=== PATIENT | male | born 1955 | race Caucasian/White ===

== ENCOUNTER 2017-01-26 21:00 | Inpatient (IN) | payer OTHER ==
--- NOTE | ~2017-01-26 | PN ---
Unit #: [id number] #: [id number] Patient: JOHN PENNINGTON [id number] [facility] [address] [place] [address] [id number] MR#: [id number] NAME: JOHN PENNINGTON ROOM: P178 Age: 61 Sex: M Admission Date: 01/27/2017 : 1955 Attending Physician: Bert Cazares M.D. Admitting Physician: Bert Cazares M.D. Primary Care Physician: Primary Care Physician Brielle RANGEL PROGRESS NOTES DATE 01/29/2017 DISCUSSION The patient's participation within the therapeutic milieu significantly limited secondary to his lack of mobility but I will encourage staff to take the patient to group in his wheelchair as his detox symptoms resolved. Otherwise, the patient offers no new complaints today. The patient continues to appear to be a good candidate for possible referral for physical rehabilitation. Dictated by... Bert Cazares M.D. CB/cody TD: 01/29/2017 14:10 JOB #: [id number] [facility] PROGRESS NOTES Page 1 of 1 X Bert Cazares MD PROGRESS NOTE
--- NOTE | ~2017-01-26 | DS ---
Unit #: [id number] #: [id number] Patient: JOHN PENNINGTON [id number] [place] [address] [id number] I MR#: [id number] NAME: JOHN PENNINGTON ROOM: P178 Age: 61 Sex: M Admission Date: 01/27/2017 : 1955 Discharge Date: 02/02/2017 Attending Physician: Bert Cazares M.D. Primary Care Physician: Primary Care Physician No DISCHARGE SUMMARY REASON FOR ADMISSION The patient is a 61-year-old white male, admitted for alcohol detox. HOSPITAL COURSE The patient was admitted to the [facility], placed on routine detoxification protocol for alcohol. He remained in bed with little participation within the therapeutic milieu. He claimed to be unable to walk and remained in bed throughout much of stay in the hospital. His detox was complete by 02/02/2017, and discharge was ordered. This physician at one point entertained the idea of possible referral to a physical rehabilitation facility; however, the patient did not cooperate with this such planning, and stated that he wished to go home at the time of discharge. FINAL DIAGNOSES Alcohol use disorder. DISPOSITION ON DISCHARGE The patient is discharged on the following medications Vibramycin 100 mg b.i.d. for upper respiratory infection. No dietary or physical restrictions were placed on the patient at the time of discharge. FOLLOWUP Followup will take place through the auspices of community mental health resources. PROGNOSIS Considered less than optimal. Dictated by... Bert Cazares M.D. CB/fredi TD: 02/03/2017 11:15 JOB #: [id number] Unit #: [id number] #: [id number] Patient: JOHN PENNINGTON DISCHARGE SUMMARY Page 1 of 1 X Bert Cazares MD X DISCHARGE SUMMARY
--- NOTE | ~2017-01-26 | PN ---
Unit #: [id number] #: [id number] Patient: JOHN PENNINGTON [id number] [facility] [address] [place] [address] [id number] MR#: [id number] NAME: JOHN PENNINGTON ROOM: P178 Age: 61 Sex: M Admission Date: 01/27/2017 : 1955 Attending Physician: Bert Cazares M.D. Admitting Physician: Bert Cazares M.D. Primary Care Physician: Primary Care Physician Brielle RANGEL PROGRESS NOTES DATE 02/01/2017 DISCUSSION The patient remains abed with little participation whatsoever within the therapeutic milieu. I have informed today to expect a.m. discharge. Dictated by... Bert Cazares M.D. CB/chapis TD: 02/02/2017 04:13 JOB #: [id number] [facility] PROGRESS NOTES Page 1 of 1 X Bert Cazares MD X PROGRESS NOTE
--- NOTE | ~2017-01-26 | PN ---
Unit #: [id number] #: [id number] Patient: JOHN PENNINGTON [id number] [facility] [address] [place] [address] [id number] MR#: [id number] NAME: JOHN PENNINGTON ROOM: P178 Age: 61 Sex: M Admission Date: 01/27/2017 : 1955 Attending Physician: Bert Cazares M.D. Admitting Physician: Bert Cazares M.D. Primary Care Physician: Primary Care Physician Brielle RANGEL PROGRESS NOTES DATE 01/31/2017 DISCUSSION The patient remains abed with little participation within the therapeutic milieu. We continue current treatment, and we will discontinue the patient's detoxification protocol at the conclusion of 5 days of detoxification tomorrow. I am uncertain as to whether the patient qualify for physical rehabilitation and return home while not an ideal disposition may be our only choice. Dictated by... Bert Cazares M.D. CB/bzg TD: 01/31/2017 14:37 JOB #: [id number] [facility] PROGRESS NOTES Page 1 of 1 X Bert Cazares MD X PROGRESS NOTE
--- NOTE | ~2017-01-26 | PN ---
Unit #: [id number] #: [id number] Patient: JOHN PENNINGTON [id number] [facility] [address] [place] [address] [id number] MR#: [id number] NAME: JOHN PENNINGTON ROOM: P178 Age: 61 Sex: M Admission Date: 01/27/2017 : 1955 Attending Physician: Bert Cazares M.D. Admitting Physician: Bert Cazares M.D. Primary Care Physician: Primary Care Physician Brielle SANABRIA NOTES DATE 01/28/2017 DISCUSSION The patient remains abed with little participation within the therapeutic milieu. He claims that he is unable to walk. I will ask the patient's older adult social work specialist to see him regarding possible referral for physical rehabilitation and at this point, he continues on his prescribed psychotropic medication regimen. Dictated by... Bert Cazares M.D. CB/cody TD: 01/28/2017 21:22 JOB #: [id number] [facility] PROGRESS NOTES Page 1 of 1 X Bert Cazares MD PROGRESS NOTE
--- NOTE | ~2017-01-26 | PA ---
Unit #: [id number] #: [id number] Patient: JOHN PENNINGTON [id number] [place] [address] [id number] I MR#: [id number] NAME: JOHN PENNINGTON ROOM: P178 Age: 61 Sex: M Admission Date: 01/27/2017 : 1955 Date of Assessment: 01/27/2017 Attending Physician: Bert Cazares M.D. Admitting Physician: Bert Cazares M.D. Primary Care Physician: Primary Care Physician No PSYCHIATRIC ASSESSMENT IDENTIFYING INFORMATION The patient is a 61-year-old white male admitted to the [address] [place] [address] with increasing alcohol use and suicidal ideation. INFORMANT(S) Patient. RELIABILITY Good. CHIEF COMPLAINT None given. HISTORY OF PRESENT ILLNESS The patient is a 61-year-old white male well-known to this physician from 2 previous admissions to this facility. The patient is admitted after he had presented to this facility voicing positive suicidal ideation with plan to electrocute himself in a bathtub. The patient reports that his most prominent stressor at this point is estrangement from his family. He also reports that he is living in intolerable circumstances with his cz-ureorff-ba-law. He states that it is difficult to sleep in this chaotic relationship. He reports that he has been abusing alcohol up to 24 beers on a daily basis. The patient is unable to work secondary to chronic back pain and is now wheelchair bound. For a more complete history of present illness, please refer to previous dictated notes. PAST PSYCHIATRIC HISTORY No changes. FAMILY HISTORY Reviewed, no changes. SOCIAL HISTORY Reviewed, no changes a part from the fact that the patient is now living with his ynojdox-qm-cmw. MEDICAL HISTORY No changes. MEDICATION HISTORY None. ALLERGIES Unit #: [id number] #: [id number] Patient: JOHN PENNINGTON None. MENTAL STATUS EXAM At this time, reveals the patient to be a disheveled thin white male appearing stated age. He is in no apparent physical distress at the time of examination. He is awake, alert, oriented in all spheres. His mood is dysphoric. His affect constricted. Speech is generally relevant and coherent. There are no gross deficits in memory or cognition noted. Intelligence is judged to be in the average range based on fund of knowledge. The patient is cooperative throughout the interview. He is currently endorsing positive suicidal ideation. He denies homicidal ideation. He denies any psychotic symptoms. His judgement and insight appear to be intact. ASSETS AND LIABILITIES Patient's assets, motivation for change. Liabilities, lack of resources. ADMITTING DIAGNOSES 1. Dysthymic disorder. 2. Alcohol use disorder. PSYCHIATRIC PLAN/TREATMENT GOALS The patient remains hospitalized for safety and stabilization. Routine detoxification protocol for alcohol has been initiated. The patient will participate in appropriate baptiste and milieu activities. ESTIMATED LENGTH OF STAY Five to seven days. Dictated by... Bert Cazares M.D. HEIDY/cody TD: 01/27/2017 16:39 JOB #: [id number] PSYCHIATRIC ASSESSMENT Page 1 of 1 X Bert Cazares MD X PSYCHIATRIC ASSESSMENT
--- NOTE | ~2017-01-26 | HP ---
Unit #: [id number] #: [id number] Patient: JOHN PENNINGTON [id number] [place] [address] [id number] MR#: [id number] NAME: JOHN PENNINGTON ROOM: P178 Age: 61 Sex: M Admission Date: 01/27/2017 : 1955 Attending Physician: Bert Cazares M.D. Admitting Physician: Bert Cazares M.D. Primary Care Physician: Primary Care Physician No HISTORY AND PHYSICAL HISTORY OF PRESENT ILLNESS John is a 61 year old admitted to [facility] because of his continued abuse of alcohol. PAST MEDICAL HISTORY 1. Long history of alcohol abuse. a. Cirrhosis. 2. COPD. 3. Degenerative disc disease. PAST SURGICAL HISTORY Left hand. ALLERGIES No known drug allergies. SOCIAL HISTORY Smokes at least 1 1/2 packs per day. Drinks 12 to 24 beers on a daily basis. Denies illicit drug use. FAMILY HISTORY Medically noncontributory. REVIEW OF SYSTEMS CONSTITUTIONAL: No fever or chills. HEENT: Denies any sore throat, ear pain or runny nose. CARDIOVASCULAR: Denies chest pain, irregular heart rhythm or palpitations. CHEST: Denies shortness of breath or cough. No hemoptysis. GASTROINTESTINAL: Denies nausea, vomiting, diarrhea or chronic constipation. ENDOCRINE: Denies history of increased thirst or urination. No recent significant weight loss or gain. GENITOURINARY: Denies dysuria, frequency, or hematuria. SKIN: Denies any rashes. HEMATOLOGIC: Denies history of increased bleeding or bruising. MUSCULOSKELETAL: Denies any hot, swollen joints. No generalized muscle pain. NEUROLOGIC: Denies problems with vision or speech. No frequent, severe headaches. No numbness, tingling or weakness in any extremities. Denies loss of bladder or bowel control. CURRENT MEDICATIONS Unit #: [id number] #: [id number] Patient: JOHN PENNINGTON Detox protocol PHYSICAL EXAMINATION GENERAL: Alert, appearing older than his stated age of 61, in no apparent distress. VITAL SIGNS: Blood pressure 154/74, heart rate 80, respirations 16, temperature 98.6. WEIGHT: 160 pounds. HEIGHT: 5'9". SKIN: Warm and dry without rash or lesion. HEENT: Normocephalic. TMs not viewed. Oral and nasal passages clear. Conjunctivae clear. Pupils equal, round and reactive to light and accommodation. Extraocular movements intact. NECK: Supple without lymphadenopathy or thyromegaly. HEART: Regular rate and rhythm without murmur. LUNGS: Clear. ABDOMEN: Soft, nontender. : Not done. EXTREMITIES: No evidence of cyanosis, clubbing or edema. Moves all extremities without focal deficit. NEUROLOGICAL: Grossly within normal limits. Cranial Nerves: II: Visual gee are intact. III, IV AND : Extraocular movements are intact. Pupils are equal, round and reactive to light. V: Facial sensation is grossly normal. VII: Facial movements and expression are normal. VIII: Auditory acuity grossly intact. IX, X: Uvula is midline. Phonation is normal. XI: Patient shrugs shoulders and turns head normally. XII: Tongue protrudes in the midline. Sensory and Motor Function: Sensory and motor sensation is grossly normal. Motor: moves all extremities well. Coordination: Gait is normal. Deep Tendon Reflexes: Intact. IMPRESSION Psychiatric admission RECOMMENDATIONS PSYCHIATRIC: Per psychiatrist. MEDICAL: I see no contraindications to participating in facility's activities. MEDICAL PROGNOSIS Good. MEDICAL CONDITION Stable. Dictated by... Karey Martinez PRonARon-Deena. for Blaine Ortiz/chapis TD: 01/27/2017 21:21 Unit #: [id number] #: [id number] Patient: JOHN PENNINGTON JOB #: [id number] HISTORY AND PHYSICAL Page 1 of 1 X Karey Martinez X HISTORY AND PHYSICAL
--- NOTE | ~2017-01-26 | PN ---
Unit #: [id number] #: [id number] Patient: JOHN PENNINGTON [id number] [facility] [address] [place] [address] [id number] MR#: [id number] NAME: JOHN PENNINGTON ROOM: P178 Age: 61 Sex: M Admission Date: 01/27/2017 : 1955 Attending Physician: Bert Cazares M.D. Admitting Physician: Bert Cazares M.D. Primary Care Physician: Primary Care Physician Brielle RANGEL PROGRESS NOTES DATE 01/30/2017 DISCUSSION The patient remains abed and continues to complain of difficulty ambulating. He states that when at home he "(1) along the gilbert". It is my hope that we will be able to refer the patient for a residential physical therapy stay following his discharge from the hospital as he is at this point unable to ambulate to any significant degree. His detox continues uneventfully. Dictated by... Bert Cazares M.D. CB/chapis TD: 01/31/2017 02:50 JOB #: [id number] [facility] PROGRESS NOTES Page 1 of 1 X Bert Cazares MD PROGRESS NOTE
[2017-01-28 09:43] LABS: BASOPHIL# 0.1 X10e3 (0-0.3); BASOPHIL% 2.1 % (0-2.5); EOSINOPHIL# 0.2 X10e3 (0-0.7); EOSINOPHIL% 4.4 % (0.0-7.0); HEMATOCRIT 39.6 % (38.0-50.0); HEMOGLOBIN 13.5 gm/dL (13.0-16.0); LYMPHOCYTE# 1.9 X10e3 (1.0-3.5); LYMPHOCYTE% 38.9 % (17.0-45.0); MEAN CORPUSCULAR HEMOGLOBIN 36.1 PG (28-34); MEAN PLATELET VOLUME 9.1 FL (6.5-11.5); MONOCYTE# 0.6 X10e3 (0-1.0); MONOCYTE% 11.4 % (3.0-12.0); NEUTROPHIL# 2.1 X10e3 (1.5-7.1); NEUTROPHIL% 43.2 % (40-75); RED BLOOD COUNT 3.73 X10e (3.90-5.60); RED CELL DISTRIBUTION WIDTH 14.8 % (11.0-15.5); WHITE BLOOD COUNT 4.8 X10e3 (4.0-10.5)
[2017-01-28 09:57] LABS: ALBUMIN SERUM 3.1 g/dL (3.5-5.0); BILIRUBIN,TOTAL 2.9 mg/dL (0.2-2.0); BUN/CREATININE RATIO 12.85; CALCIUM SERUM 9.3 mg/dL (8.4-10.2); CREATININE SERUM 0.7 mg/dL (0.6-1.4); GLOM FILT RATE Estimated 103.3 mL/min (>60); POTASSIUM 3.6 mmol/L (3.5-5.1); PROTEIN TOTAL SERUM 5.8 g/dL (6.0-8.3)
[2017-01-28 10:31] LABS: DIFF IND YES; PLATELET COUNT 66 X10e3 (140-420)
[2017-01-28 10:45] LABS: PLATELET ESTIMATE DECREASED (NORMAL)
[2017-01-31 09:50] LABS: URINE APPEARANCE CLOUDY; URINE BLOOD NEG (NEG); URINE COLOR DK YELLOW; URINE GLUCOSE NEG (NEG); URINE KETONE NEG (NEG); URINE LEUKOCYTE ESTERASE 1+ (NEG); URINE NITRATE NEG (NEG); URINE PH 6.5 (5-8); URINE PROTEIN NEG (NEG); URINE SPECIFIC GRAVITY 1.025 (1.003-1.035); URINE UROBILINOGEN >8.0 MG/DL (NEG)
[2017-01-31 09:54] LABS: URBCS1 AUWI 0-2 /[HPF] (0-2); URINE SQUAMOUS EPITHELIAL CELL OCC /[HPF]
[2017-01-31 10:39] LABS: AMPHETAMINE NEG (NEG); BARBITURATES NEG (NEG); BENZODIAZEPINES POS (NEG); COCAINE NEG (NEG); MARIJUANA POS (NEG); OPIATES NEG (NEG); TRICYCLIC ANTIDEPRESSANTS NEG (NEG); U METHADONE NEG (NEG)
[2017-01-31 11:02] LABS: URINE BILIRUBIN NEG (NEG)
[2017-01-31 11:03] LABS: URINE BACTERIA AUWI 4+ (NEGATIVE)
[2017-01-31 11:04] LABS: URINE CRYSTALS CALCIUM OXALATE /[HPF]; URINE MUCUS PRESENT
[2017-02-01 10:07] LABS: ALBUMIN SERUM 3.2 g/dL (3.5-5.0); CALCIUM SERUM 9.5 mg/dL (8.4-10.2); CREATININE SERUM 0.7 mg/dL (0.6-1.4); GLOM FILT RATE Estimated 103.3 mL/min (>60); POTASSIUM 3.7 mmol/L (3.5-5.1); PROTEIN TOTAL SERUM 5.7 g/dL (6.0-8.3)
== END 2017-02-02 17:00 | DRG 897 ==
LOC: P1E 01-27 06:00 → POF 01-27 06:00 → P1E 01-27 09:13
PROVIDERS: Specialist
PROC: HZ2ZZZZ Detoxification Services for Substance Abuse Treatment (ICD-10-PCS; principal; 2017-01-27)
DX: F10.10 Alcohol abuse, uncomplicated (principal); R45.851 Suicidal ideations; F34.1 Dysthymic disorder; J44.9 Chronic obstructive pulmonary disease, unspecified; F17.210 Nicotine dependence, cigarettes, uncomplicated
CPT/HCPCS: 80053; 80307; 81003; 85025; 86592